=== PATIENT | female | born 1960 | race Caucasian/White ===

== ENCOUNTER → 2023-07-04 17:15 | Outpatient (REF) | payer BC, SELFPAY | LOC: WDC 17:15 | PROVIDERS: ATTENDING PHYSICIAN Nurse Practitioner Family; FAMILY PHYSICIAN Nurse Practitioner Family | DX: Z12.31 Encounter for screening mammogram for malignant neoplasm of breast (principal) | CPT/HCPCS: 77063; 77067 ==

== ENCOUNTER → 2023-08-10 06:37 | Day surgery (SDC) | payer BC, SELFPAY | LOC: GI 06:37 | PROVIDERS: ATTENDING PHYSICIAN Internal Medicine Gastroenterology | DX: Z12.11 Encounter for screening for malignant neoplasm of colon (principal); K63.5 Polyp of colon; K57.30 Diverticulosis of large intestine without perforation or abscess without bleeding; K56.699 Other intestinal obstruction unspecified as to partial versus complete obstruction; Z83.719 Family history of colon polyps, unspecified | CPT/HCPCS: 45380; 88305 ==

== ENCOUNTER → 2023-08-28 08:33 | Outpatient (REF) | payer BC, SELFPAY | LOC: HWRAD 08:33 | PROVIDERS: ATTENDING PHYSICIAN Internal Medicine Gastroenterology; FAMILY PHYSICIAN Nurse Practitioner Family | DX: R19.4 Change in bowel habit (principal) | CPT/HCPCS: 74261 ==

== ENCOUNTER → 2023-11-24 14:33 | Outpatient (REF) | payer BC, SELFPAY | LOC: RCS 14:33 | PROVIDERS: ATTENDING PHYSICIAN Colon & Rectal Surgery; FAMILY PHYSICIAN Nurse Practitioner Family | DX: K57.30 Diverticulosis of large intestine without perforation or abscess without bleeding (principal); R93.3 Abnormal findings on diagnostic imaging of other parts of digestive tract | CPT/HCPCS: 93005 ==

== ENCOUNTER → 2024-07-05 12:25 | Outpatient (REF) | payer BC, SELFPAY | LOC: WDC 12:25 | PROVIDERS: ATTENDING PHYSICIAN Nurse Practitioner Family; FAMILY PHYSICIAN Nurse Practitioner Family | DX: Z12.31 Encounter for screening mammogram for malignant neoplasm of breast (principal) | CPT/HCPCS: 77063; 77067 ==